=== PATIENT | female | born 1995 ===

== ENCOUNTER 2023-06-26 09:34 | Day surgery (SDC) | payer OTHER ==
[2023-06-26] MEDS ORDERED: CILOXAN5 ML OTIC (11:39)
[2023-06-26] MEDS ORDERED: CEPHALEXIN500 MG PO (11:40)
== END 2023-06-26 14:00 | disposition home or self-care (01) ==
LOC: CIR.AMB 09:34
PROVIDERS: ATTEND Otolaryngology Otology & Neurotology
DX: H72.02 Central perforation of tympanic membrane, left ear (principal); H90.42 Sensorineural hearing loss, unilateral, left ear, with unrestricted hearing on the contralateral side; Z20.822 Contact with and (suspected) exposure to COVID-19; F17.210 Nicotine dependence, cigarettes, uncomplicated